=== PATIENT | female | born 1995 | race Caucasian/White ===

== ENCOUNTER 2017-06-06 07:36 | Emergency (ER) | payer MEDICAID ==
[~2017-06-06] VITALS: Ht 172.7 cm; Wt 81.0 kg
[2017-06-06] MEDS ORDERED: TETanus/Pertussis (Acell)/Diphther VAC/PF (Tdap-Adult) 0.5ml syringe IM ONE (08:50)
[2017-06-06 09:06] VITALS: BP 132/89
== END 2017-06-06 09:08 | disposition home or self-care (01) ==
LOC: ER 07:36
DX: S61.210A Laceration without foreign body of right index finger without damage to nail, initial encounter (principal); Z88.0 Allergy status to penicillin; W26.0XXA Contact with knife, initial encounter; Y93.89 Activity, other specified; Y92.89 Other specified places as the place of occurrence of the external cause; Y99.8 Other external cause status
CPT/HCPCS: 90471; 90715; 99283